=== PATIENT | male | born 1980 | race Two or more races ===

== ENCOUNTER 2017-11-13 07:36 | Emergency (ER) | payer OTHER ==
[~2017-11-13] VITALS: Ht 180.3 cm; Wt 111.1 kg
[2017-11-13 07:50] VITALS: BP 139/85
--- NOTE | 2017-11-13 07:55 | PHYS DOC ---
Adult General Chief Complaint Chief Complaint: SHOULDER INJURY [facility] HPI Patient is a 37 year old male presents to the emergency department with complaints of left posterior thorax discomfort for one week. Patient states the pain is worse with movement and deep inspiration. He does report a cough for 1 month. Patient has no known injury. He denies shortness of breath, headache, lightheadedness, nausea, vomiting, abdominal pain. At the time of evaluation in the emergency department, patient has no complaints of pain. He is not using any [id number] medications for symptom management. Review of Systems Review of Systems Constitutional: Denies fever or chills [] Eyes: Denies change in visual acuity, redness, or eye pain [] HENT: Denies nasal congestion or sore throat [] Respiratory: Cough without shortness of breath Cardiovascular: No additional information not addressed in HPI [] GI: Denies abdominal pain, nausea, vomiting, bloody stools or diarrhea [] : Denies dysuria or hematuria [] Musculoskeletal: Right posterior thorax discomfort Integument: Denies rash or skin lesions [] Neurologic: Denies headache, focal weakness or sensory changes [] Endocrine: Denies polyuria or polydipsia [] All other systems were reviewed and found to be within normal limits, except as documented in this note. Current Medications Current Medications Current Medications Medications (Trade) Dose Ordered Sig/[facility] Start Time Stop Time Status Last Admin Dose Admin Ketorolac Tromethamine (Toradol Im) 60 mg 1X ONCE 11/13/17 08:00 11/13/17 08:01 DC 11/13/17 08:04 60 MG Allergies Allergies Allergies Coded Allergies Type Severity Reaction Last Updated Verified No Known Drug Allergies 11/13/17 No Physical Exam Physical Exam Constitutional: Well developed, well nourished, no acute distress, non-toxic appearance. [] HENT: Normocephalic, atraumatic, bilateral external ears normal, oropharynx moist, no oral exudates, nose normal. [] Eyes: PERRLA, EOMI, conjunctiva normal, no discharge. [] Neck: Normal range of motion, no midline or paracervical tenderness, supple, no stridor. [] Cardiovascular:Heart rate regular rhythm, no murmur [] Lungs & Thorax: Bilateral breath sounds clear to auscultation [] Abdomen: Bowel sounds normal, soft, no tenderness, no masses, no pulsatile masses. [] Skin: Warm, dry, no erythema, no rash. [] Back: No midline or paraspinous tenderness, no CVA tenderness. The area patient reports pain, the trapezius, is nontender to palpate on exam [] Extremities: No tenderness, no cyanosis, no clubbing, ROM intact, no edema. [] Neurologic: Alert and oriented X 3, normal motor function, normal sensory function, no focal deficits noted. [] Psychologic: Affect normal, judgement normal, mood normal. [] Current Patient Data Vital Signs Vital Signs Date Time Temp Pulse Resp B/P (MAP) Pulse Ox O2 Delivery O2 Flow Rate FiO2 11/13/17 07:50 98.3 67 18 98 Room Air 98.3 EKG EKG [] Radiology/Procedures Radiology/Procedures Chest x-ray reviewed by Dr. Frausto, radiologist. Impression: No acute cardiopulmonary process detected.[] Course & Med Decision Making Course & Med Decision Making Pertinent Labs and Imaging studies reviewed. (See chart for details) [Patient had relief of discomfort after Toradol injection. Plan will be for discharge home on Flexeril and ibuprofen. Return to the emergency Department for new symptoms or concerns worsening of current condition. Otherwise follow- up primary care in 3-5 days. Dragon Disclaimer Dragon Disclaimer This electronic medical record was generated, in whole or in part, using a voice recognition dictation system. Departure Departure Impression: Primary Impression: Thoracic back sprain Disposition: 01 HOME, SELF-CARE Condition: STABLE Referrals: [facility] Patient Instructions: Thoracic Strain Scripts Naproxen (NAPROSYN) 500 Mg Tablet 500 MG PO BID Y for PAIN, #20 TAB Prov: FADIA HOOD APRN 11/13/17 Cyclobenzaprine Hcl (CYCLOBENZAPRINE HCL) 10 Mg Tablet 10 MG PO TID, #21 TAB Prov: FADIA HOOD APRN 11/13/17 Problem Qualifiers Primary Impression: Thoracic back sprain Encounter type: initial encounter Qualified Codes: S23.9XXA - Sprain of unspecified parts of thorax, initial encounter FADIA HOOD APRN Nov 13, 2017 07:55
[2017-11-13] MEDS ORDERED: KETOROLAC 60 MG/2 ML INJ. IM ONE (08:00)
--- NOTE | 2017-11-13 08:10 | RAD ---
Indication: Left-sided posterior chest pain. Time of exam 0800 hours. Right convexity thoracic scoliotic curvature is noted. The lungs are clear. No infiltrate is detected. No effusion or pneumothorax is seen. There is mild hyperinflation present. Impression: No acute cardiopulmonary process is detected.
[2017-11-13] MEDS ORDERED: CYCL10TA2 PO (08:14)
[2017-11-13] MEDS ORDERED: NAPR-683 PO (08:14)
== END 2017-11-13 08:22 | disposition home or self-care (01) ==
LOC: ER 07:36
DX: S23.3XXA Sprain of ligaments of thoracic spine, initial encounter (principal); R05 Cough; X58.XXXA Exposure to other specified factors, initial encounter; Y93.89 Activity, other specified; Y92.89 Other specified places as the place of occurrence of the external cause; Y99.8 Other external cause status
CPT/HCPCS: 71020; 96372; 99284; J1885